=== PATIENT | male | born 1990 | race Caucasian/White ===

== ENCOUNTER → 2020-11-30 | Outpatient (CLI) | payer OTHER | LOC: LAB 10:42 | PROVIDERS: ATTEND Orthopaedic Surgery | DX: Z01.812 Encounter for preprocedural laboratory examination (principal); Z20.828 Contact with and (suspected) exposure to other viral communicable diseases ==

== ENCOUNTER 2020-12-05 07:27 | Day surgery (SDC) | payer OTHER ==
[~2020-12-05] VITALS: Ht 188 cm; Wt 111.1 kg
[2020-12-05 08:17] VITALS: BP 133/92
--- NOTE | 2020-12-05 12:10 | O ---
[facility] [place] [address] OPERATIVE REPORT Name: MAYCOL PETERSEN Room #: 150-4 [facility] M.R.#: [id number] Admission: 12/05/20 Attend Phys: Joe Terrell MD Discharge: Date of : 88 Report #: [id number] THIS REPORT FOR: cc: Winnie Montiel,Winnie Terrell,Joe Blackmon MD ~ DATE OF SERVICE: 12/05/2020 PREOPERATIVE DIAGNOSIS: Herniated lumbar disk, L5-S1, left with radiculopathy. POSTOPERATIVE DIAGNOSIS: Herniated lumbar disk, L5-S1, left with radiculopathy. PROCEDURE: Decompressive laminectomy and diskectomy, L5-S1, left. SURGEON: Joe Terrell MD INDICATIONS: This 30-year-old gentleman complains of rather severe persistent chronic radiating left leg pain and low back pain consistent with radiculopathy. Previous MRI study confirms a moderate sized herniated disk at L5-S1 extending toward the left side causing some nerve impingement and neural foraminal narrowing. He has tried conservative measures for some time without much benefit. He has elected now to go ahead with surgical laminectomy and diskectomy. DESCRIPTION OF PROCEDURE: The patient was taken to the operating room where he was placed under general anesthesia. Prophylactic intravenous antibiotics were administered. He was turned to the prone position. The low back was meticulously prepped and draped. C-arm was used to localize the appropriate level. A skin incision was made just to the left of midline overlying the L5-S1 level. This was carried through fascia and muscle was retracted laterally exposing the lamina, a small laminotomy in the inferior aspect of L5 and the superior aspect of S1 was created. The ligamentum was excised. The bony dissection was extended out laterally, undercutting the facet slightly allowing good visualization. The nerve root was found to be inflamed with some generalized edema and deformity. It was retracted gently toward the midline exposing the underlying disk. There was a moderate sized extruded disk fragment, which was removed. The underlying annulus was found to be a rather firm and fibrotic with some areas of calcification causing some persistent disk bulging. This was debrided with pituitary rongeurs removing as much of the calcific firm annulus as possible and entering the disk and removing a moderate amount of loose degenerative disk debris. The level was confirmed with C-arm views, confirming that I was at the appropriate L5-S1 level. [address] [address] OPERATIVE REPORT Name: MAYCOL PETERSEN Room #: 150-4 [facility] [place] M.R.#: [id number] Admission: 12/05/20 Attend Phys: Jeo Terrell MD Discharge: Date of : 88 Report #: [id number] Once the dissection had been completed, the canal was carefully inspected both proximally and distally and across the midline. The disk is still somewhat prominent, but in a very firm calcific fashion making further decompression difficult. There was good decompression out toward the left side and toward the neural foramina, which seemed to be opened up nicely. The nerve root seemed to be freed up from any significant impingement and appeared to be in good position. At this point, the wound was copiously irrigated. Good hemostasis was confirmed. 40 mg of Depo-Medrol were left in the epidural space around the nerve root. The laminotomy site was covered with a small sheet of Gelfoam soaked in thrombin. The muscle and fascial layer were closed with 0 Vicryl sutures. The subcutaneous tissues were closed with 2-0 Monocryl. The skin was closed with a running subcuticular 2-0 Prolene supplemented with Steri-Strips. 20 mL of 0.5% Marcaine with epinephrine were injected into the muscle and fascial layer to help with postoperative pain management. The patient was then awakened and returned to recovery room in good condition. <ELECTRONICALLY SIGNED> By: Joe Terrell MD 12/05/20 1210 1154 1207 Joe Terrell MD /nt
[2020-12-05 13:19] VITALS: BP 133/92
--- NOTE | 2020-12-06 15:07 | PATH ---
[facility] [address] [place] [address] PATHOLOGY RPT PROCEDURE Name: NICOLAKEELEYROBIN Room #: DEP [facility] M.R.#: [id number] Admission: 12/05/20 Date of : 88 Discharge: 12/05/20 Report #: [id number] Path Case #: [id number] [facility] Accession Number: [id number] . 01 Material submitted: . vertebral column - LUMBAR FIVE THROUGH SACRAL ONE DISC LEFT . 01 Clinical history: . LUMBAR DISCECTOMY LUMBAR LAMINECTOMY, DISCECTOMY LEFT HERNATION OF LUMBAR . 02 Diagnosis: Disc, lumbar 5 through sacral 1 disc left, laminectomy/discectomy: - Fragments of nucleus pulposus with focal neovascularization. - Fragments of dense fibrovascular connective tissue with congestion. . (IUV:mml; 12/06/2020) QLM 12/06/2020 1340 Local . 02 Electronically signed: . Avis Smart MD, Pathologist NPI- [id number] . 01 Gross description: . The specimen is received in formalin, labeled "Robin Byrne, lumbar five through sacral one disc, left". Received are multiple segments of white-bosch to pink-bosch fibrous material measuring 3.8 x 3.5 x 0.7 cm in aggregate dimensions. The specimen is submitted representatively in cassette A1. (CAA; 12/05/2020) QAC/QA 12/05/2020 1605 Local . 02 Pathologist provided ICD-10: M51.86 . 02 CPT . 273283 Specimen Comment: A courtesy copy of this report has been sent to [phone], [phone] Specimen Comment: [id number] Specimen Comment: Report sent to / DR LOW Performed at: [address] [id number] MD Chris Lawrence MD Phone: [phone] Performed at: 02 formerly [facility] [address] [place] [address] PATHOLOGY RPT PROCEDURE Name: ROBIN BYRNE Room #: DEP [facility] M.R.#: [id number] Admission: 12/05/20 Date of : 88 Discharge: 12/05/20 Report #: [id number] Path Case #: [id number] [address] [place] [address] [id number] MD Avis Smart MD Phone: [phone]
== END 2020-12-05 14:15 | disposition home or self-care (01) ==
LOC: OR 07:27 → TBA 08:13 → OR 08:46
PROVIDERS: ATTEND Orthopaedic Surgery
DX: M51.16 Intervertebral disc disorders with radiculopathy, lumbar region (principal); Z98.890 Other specified postprocedural states; Z79.899 Other long term (current) drug therapy
CPT/HCPCS: 50010; 50101; 50402; 50704; 50850; 56525; 62110; 62900; 70005